=== PATIENT | female | born 1965 | race African-American/Black ===

== ENCOUNTER → 2016-11-11 08:38 | Outpatient (CLI) | payer OTHER | END | disposition home or self-care (01) | LOC: D.RT 08:00 | DX: Z02.71 Encounter for disability determination (principal) ==

== ENCOUNTER 2019-02-15 06:04 | Day surgery (SDC) | payer MEDICARE, BC | END 2019-02-15 17:00 | disposition home or self-care (01) | LOC: D.OPS 06:04 | DX: N18.6 End stage renal disease (principal); Z01.812 Encounter for preprocedural laboratory examination ==